=== PATIENT | female | born 1995 | race Caucasian/White ===

== ENCOUNTER 2017-12-27 22:44 | Emergency (ER) | payer OTHER ==
[~2017-12-27] VITALS: Ht 167.6 cm; Wt 77.1 kg
[2017-12-27 22:48] VITALS: BP 121/82
--- NOTE | 2017-12-28 00:54 | ED GENERAL ADULT ---
History of Present Illness General Chief Complaint: Fall Stated Complaint: PT HAD A FALL SAYS SOB Source: patient, family Exam Limitations: no limitations Vital Signs & Intake/Output Vital Signs & Intake/Output Vital Signs Date Time Temp Pulse Resp B/P B/P Pulse O2 O2 Flow FiO2 Mean Ox Delivery Rate 12/27 2248 98.8 87 16 121/82 97 Room Air ED Intake and Output 12/28 0000 12/27 1200 Intake Total Output Total Balance Patient 170 lb Weight Weight Reported by Patient Measurement Method Allergies Coded Allergies: No Known Allergies (12/27/17) Reconcile Medications No Known Home Medications Triage Note: PT REPORTS TO HAVE BEEN SITTING AT THE EDGE OF HER MATTRESS WHILE ON HER PHONE AND SUDDENLY LOST HER BALANCE AND FELL BACKWARDS. DENIED HITTIN HER HEAD HOWEVER SHE REPORTS SOB. Triage Nurses Notes Reviewed? yes Onset: Abrupt Duration: hour(s): Timing: single episode today : No Patient currently breastfeeds: No HPI: 22-year-old woman with no significant past medical history here for evaluation after suffering a mechanical fall. Patient reports that she was in her normal state of health this evening when she was sitting on her chair at her desk playing on her phone when she "leaned back" and fell backwards. She reportedly landed on her back onto a mattress that was on the floor. She denies any head strike, loss of consciousness, or any other injuries. Since that event she is had some minor chest discomfort and shortness of breath. Past History Travel History Traveled to [place] past 21 day No Medical History Any Pertinent Medical History? none Surgical History Surgical History: none Psychosocial History What is your primary language Filipino Tobacco Use: Never used Family History Hx Contributory? No Review of Systems Review of Systems Constitutional: Reports: no symptoms. EENTM: Reports: no symptoms. Respiratory: Reports: short of breath. Cardiovascular: Reports: chest pain. GI: Reports: no symptoms. Genitourinary: Reports: no symptoms. Musculoskeletal: Reports: no symptoms. Skin: Reports: no symptoms. Neurological/Psychological: Reports: no symptoms. Hematologic/Endocrine: Reports: no symptoms. Immunologic/Allergic: Reports: no symptoms. Physical Exam Physical Exam General Appearance: well developed/nourished, no apparent distress, alert, awake , comfortable Head: atraumatic, normal appearance Eyes: Bilateral: normal appearance, PERRL, EOMI. Ears, Nose, Throat: normal pharynx, normal ENT inspection Neck: normal inspection, supple, full range of motion Respiratory: normal breath sounds, no respiratory distress, quiet respiration, Mild Chest wall tenderness Cardiovascular: regular rate/rhythm Peripheral Pulses: 4+ radial (R), 4+ radial (L) Gastrointestinal: soft, non-tender Back: normal inspection, normal range of motion Extremities: normal inspection, normal capillary refill, normal range of motion Neurologic/Psych: no motor/sensory deficits, awake, alert, oriented x 3 Skin: intact, normal color, warm/dry Core Measures ACS in differential dx? No CVA/TIA Diagnosis: No Sepsis Present: No Sepsis Focused Exam Completed? No Progress Differential Diagnoses I considered the following diagnoses in my evaluation of the patient: mechanical fall Plan of Care: Orders Procedure Date/time Status EKG 12/27 2250 Active Initial ED EKG: normal axis, normal intervals, normal p-waves, normal QRS complex, normal sinus rhythm Departure Departure Disposition: HOME OR SELF CARE Condition: Stable Clinical Impression Primary Impression: Chest wall contusion Referrals: Gianna Lawson MD (PCP/Family) Additional Instructions: Return to the ED should her symptoms worsen. Follow up with your primary care provider after discharge. Departure Forms: Customer Survey General Discharge Information Prescriptions: Current Visit Scripts No Known Home Medications Comments EKG is normal. Chest x-ray is negative. PATIENT: KIM WOODS PRESENT AGE: 22 PATIENT ACCOUNT NO: [id number] : 95 LOCATION: [facility] ORDERING PHYSICIAN: Osmany Brunson DO SERVICE DATE: 12/28/17 EXAM TYPE: RAD - XRY-CHEST XRAY, TWO VIEWS EXAMINATION: XR CHEST CLINICAL INFORMATION: Fall, shortness of breath COMPARISON: None TECHNIQUE: 2 views of the chest were obtained. FINDINGS: The lungs are clear with no focal consolidation. No evidence of pneumothorax, pulmonary edema, or pleural effusions. The cardiomediastinal silhouette is unremarkable. No acute osseous findings. IMPRESSION: No acute cardiopulmonary findings. DICTATED BY: William Sommer MD DATE/TIME DICTATED:12/28/1758 [employer] CORE FEEDER:HOLLY DATE/TIME TRANSCRIBED:12/28/1758 CONFIDENTIAL, DO NOT COPY WITHOUT APPROPRIATE AUTHORIZATION. <Electronically signed in Other Vendor System> SIGNED BY: William Sommer MD/15/18 0104 Critical Care Note Critical Care Note Critical Care Time: non-applicable
--- NOTE | 2017-12-28 01:04 | RADIOLOGY REPORT ---
EXAMINATION: XR CHEST CLINICAL INFORMATION: Fall, shortness of breath COMPARISON: None TECHNIQUE: 2 views of the chest were obtained. FINDINGS: The lungs are clear with no focal consolidation. No evidence of pneumothorax, pulmonary edema, or pleural effusions. The cardiomediastinal silhouette is unremarkable. No acute osseous findings. IMPRESSION: No acute cardiopulmonary findings.
== END 2017-12-28 01:17 ==
LOC: ERH 22:44
DX: S20.219A Contusion of unspecified front wall of thorax, initial encounter (principal); W07.XXXA Fall from chair, initial encounter; Y92.9 Unspecified place or not applicable; Y93.89 Activity, other specified
CPT/HCPCS: 71046; 93005; 93010